=== PATIENT | male | born 1980 | race Caucasian/White ===

== ENCOUNTER 2018-02-14 15:01 | Emergency (ER) | payer OTHER ==
--- NOTE | 2018-02-14 16:18 | ER Document Report ---
ED Medical Screen (RME) - General Chief Complaint: Abdominal Pain Stated Complaint: ABDOMINAL PAIN Time Seen by Provider: 02/14/18 16:11 Mode of Arrival: Ambulatory Information source: Patient Notes: 37 yo non smoker, occ. HTN, male c/o abdominal pain umbilical to pubic and low back 3 weeks, dull, deep down, waxes/wanes but never went away. . Bowel habits have changed from everyother day, to 3 times per day, soft, saw some red blood x 3. Took pepto bismol po. No anal pain. hx hemoorhoid. Hx small kidney stones similar to the pain today. Occasional chills. no sweats or fever. Lighheaded, no nausea, no vomiting. Mom has Crohns. No hx diverticulitis or colitis. CT scan for kidney stone 10 years ago. - Related Data Allergies/Adverse Reactions: No Known Allergies Allergy (Unverified 02/14/18 15:02) Physical Exam - Vital signs Vitals: Temp Pulse Resp BP Pulse Ox 98.3 F 74 18 144/102 H 99 02/14/18 15:30 02/14/18 15:30 02/14/18 15:30 02/14/18 15:30 02/14/18 15:30 Course - Vital Signs Vital signs: Temp Pulse Resp BP Pulse Ox 98.3 F 74 18 144/102 H 99 02/14/18 15:30 02/14/18 15:30 02/14/18 15:30 02/14/18 15:30 02/14/18 15:30
[2018-02-14 17:41] LABS: ABSOLUTE BASOPHILS # (AUTO) 0.1 10^3/uL (0.0-0.2); ABSOLUTE EOSINOPHILS # (AUTO) 0.2 10^3/uL (0.0-0.6); ABSOLUTE LYMPHOCYTES (AUTO) 3.7 10^3/uL (0.5-4.7); ABSOLUTE MONOCYTES (AUTO) 0.5 10^3/uL (0.1-1.4); ABSOLUTE NEUT (AUTO) 4.2 10^3/uL (1.7-8.2); BASOPHILS % (AUTO) 1.5 % (0-2); HEMATOCRIT 44.4 % (37.9-51.0); HEMOGLOBIN 15.7 g/dL (13.5-17.0); LYMPHOCYTES % (AUTO) 42.5 % (13-45); MEAN CORPUSCULAR HEMOGLOBIN 30.4 pg (27.0-33.4); MEAN CORPUSCULAR HGB CONC 35.4 g/dL (32.0-36.0); MEAN CORPUSCULAR VOLUME 86 fl (80-97); PLATELET COUNT 262 10^3/uL (150-450); RED BLOOD COUNT 5.16 10^6/uL (4.35-5.55); RED CELL DISTRIBUTION WIDTH 12.9 % (11.5-14.0); TOTAL CELLS COUNTED % (AUTO) 100 %; WHITE BLOOD COUNT 8.7 10^3/uL (4.0-10.5)
[2018-02-14 17:49] LABS: APPEARANCE,URINE CLEAR; BILIRUBIN,URINE NEGATIVE (NEGATIVE); COLOR,URINE STRAW; GLUCOSE, URINE NEGATIVE (NEGATIVE); KETONES,URINE NEGATIVE (NEGATIVE); LEUKOCYTE ESTERASE,URINE NEGATIVE (NEGATIVE); NITRITE,URINE NEGATIVE (NEGATIVE); PROTEIN,URINE NEGATIVE (NEGATIVE); URINE SPECIFIC GRAVITY 1.005; UROBILINOGEN,URINE NEGATIVE mg/dL (<2.0)
[2018-02-14 17:53] LABS: ALANINE AMINOTRANSFERASE 26 U/L (21-72); ALBUMIN 5.1 g/dL (3.5-5.0); ALKALINE PHOSPHATASE 59 U/L (38-126); ANION GAP 10 (5-19); ASPARTATE AMINO TRANSFERASE 22 U/L (17-59); BILIRUBIN,DIRECT 0.1 mg/dL (0.0-0.4); BILIRUBIN,TOTAL 0.5 mg/dL (0.2-1.3); BLOOD UREA NITROGEN 16 mg/dL (7-20); CALCIUM 10.3 mg/dL (8.4-10.2); CARBON DIOXIDE 33 mmol/L (22-30); CHLORIDE 100 mmol/L (98-107); GLUCOSE 93 mg/dL (75-110); POTASSIUM 4.5 mmol/L (3.6-5.0); SODIUM 142.9 mmol/L (137-145); TOTAL PROTEIN 7.7 g/dL (6.3-8.2)
--- NOTE | 2018-02-14 18:39 | ER Document Report ---
ED General - General Chief Complaint: Abdominal Pain Stated Complaint: ABDOMINAL PAIN Time Seen by Provider: 02/14/18 16:11 Mode of Arrival: Ambulatory Notes: This is a 37-year-old male in no acute distress presents emergency department with a 2-3 week history of intermittent abdominal pain with some increased amount of stools. Denies any diarrhea or blood in the stool. States that he went to an urgent care but they told him to come here so that the workup could be expedited. Patient followed instructions and came here. Denies any fever, chills, sweats. Denies any right lower quadrant pain. Denies any right upper quadrant pain. States that most likely the he is here because he has had increased frequency of stools. Mother has a history of Crohn's disease what was concerned that he may have Crohn's disease. Has had a few episodes where he thought there might of been some blood in his stool but today that was unremarkable. - HPI Onset: Last week Onset/Duration: Gradual - Related Data Allergies/Adverse Reactions: No Known Allergies Allergy (Unverified 02/14/18 15:02) Past Medical History - General Information source: Patient - Social History Smoking Status: Never Smoker Chew tobacco use (# tins/day): No Frequency of alcohol use: Occasional Drug Abuse: None Lives with: Family Family History: Reviewed & Not Pertinent Patient has suicidal ideation: No Patient has homicidal ideation: No Renal/ Medical History: Reports: Hx Kidney Stones. Denies: Hx Peritoneal Dialysis Review of Systems - Review of Systems Constitutional: No symptoms reported EENT: No symptoms reported Cardiovascular: No symptoms reported Respiratory: No symptoms reported Gastrointestinal: No symptoms reported, See HPI Genitourinary: No symptoms reported Male Genitourinary: No symptoms reported Musculoskeletal: No symptoms reported Skin: No symptoms reported Hematologic/Lymphatic: No symptoms reported Neurological/Psychological: No symptoms reported Physical Exam - Vital signs Vitals: Temp Pulse Resp BP Pulse Ox 98.3 F 74 18 144/102 H 99 02/14/18 15:30 02/14/18 15:30 02/14/18 15:30 02/14/18 15:30 02/14/18 15:30 Interpretation: Normal - General General appearance: Appears well, Alert - HEENT Head: Normocephalic, Atraumatic Eyes: Normal Pupils: PERRL - Respiratory Respiratory status: No respiratory distress Chest status: Nontender Breath sounds: Normal Chest palpation: Normal - Cardiovascular Rhythm: Regular Heart sounds: Normal auscultation Murmur: No - Abdominal Inspection: Normal Distension: No distension Bowel sounds: Normal Tenderness: Nontender Organomegaly: No organomegaly - Back Back: Normal, Nontender - Extremities General upper extremity: Normal inspection, Nontender, Normal color, Normal ROM , Normal temperature General lower extremity: Normal inspection, Nontender, Normal color, Normal ROM , Normal temperature, Normal weight bearing. No: Razia's sign - Neurological Neuro grossly intact: Yes Cognition: Normal Orientation: AAOx4 Vamshi Coma Scale Eye Opening: Spontaneous Crapo Coma Scale Verbal: Oriented Crapo Coma Scale Motor: Obeys Commands Crapo Coma Scale Total: 15 Speech: Normal Motor strength normal: LUE, RUE, LLE, RLE Sensory: Normal - Psychological Associated symptoms: Normal affect, Normal mood - Skin Skin Temperature: Warm Skin Moisture: Dry Skin Color: Normal Course - Re-evaluation Re-evalutation: 02/14/18 23:14 This is a well-appearing male in no acute distress. Labs are unremarkable. Not having any urinary symptoms. Does have a history of kidney stones but not having any dysuria or flank pain with hematuria. Explained to him that his labs look good with exception of a trace amount of blood in his urine which will need follow-up. Patient was given the option to have a CT abdomen pelvis with oral and IV contrast but decided that he would delay diagnostics at this time. I think this is appropriate. I have actually written for the CT abdomen pelvis with IV and oral contrast that he can be done as an outpatient. I have put on the order as well that results should be sent to public safety dispatcher as well as a primary care provider that I have given him as well as [facility] here in [facility]. Patient is comfortable with this plan. Strict instructions were given if he develops any worsening symptoms or concerns he should return. The patient is reliable. I do not feel there is any significant risk at this time for mesenteric ischemia, appendicitis, cholelith cystitis or other acute abdominal issues. - Vital Signs Vital signs: Temp Pulse Resp BP Pulse Ox 98.0 F 72 16 165/72 H 100 02/14/18 19:07 02/14/18 19:07 02/14/18 19:07 02/14/18 19:07 02/14/18 19:07 - Laboratory Result Diagrams: 02/14/18 17:00 02/14/18 17:00 Laboratory results interpreted by me: 02/14/18 02/14/18 17:00 17:00 Carbon Dioxide 33 H Calcium 10.3 H Albumin 5.1 H Urine Blood MODERATE H Discharge - Discharge Clinical Impression: Abdominal pain Qualifiers: Abdominal location: unspecified location Qualified Code(s): R10.9 - Unspecified abdominal pain Condition: Good Disposition: HOME, SELF-CARE Instructions: Abdominal Pain ([facility]) Additional Instructions: Please follow-up with a GI doctor or your regular doctor. I have ordered outpatient CT scan of the abdomen and pelvis with IV and oral contrast. It will be important that you get this scheduled with radiology department. In the event that you have worsening symptoms please return. If you begin to develop significant right lower quadrant, right upper quadrant, fever or other symptoms please return immediately. Forms: Follow-Up Outpatient Testing Referrals: BIRGIT BROWN MD [ACTIVE STAFF] - Follow up as needed MAXIMILIANO DONALDSON MD [COMMUNITY BASED STAFF] - 02/15/18 8:00 am
[2018-02-14 19:10] VITALS: BP 165/72
== END 2018-02-14 19:10 | disposition home or self-care (01) ==
LOC: ER 15:01
DX: R10.9 Unspecified abdominal pain (principal); R19.4 Change in bowel habit; R31.9 Hematuria, unspecified; Z83.79 Family history of other diseases of the digestive system; Z87.442 Personal history of urinary calculi
CPT/HCPCS: 36415; 80053; 81001; 83690; 85025; 99284